=== PATIENT | male | born 1990 | race Caucasian/White ===

== ENCOUNTER 2023-08-20 09:10 | Emergency (ER) | payer SELFPAY ==
[2023-08-20 09:51] VITALS: BP 122/88; PULSE 69; RESP 14; TEMP 36.7; O2SAT 98; BMI 23.7
[2023-08-20 10:06] VITALS: TEMP 36.3
[2023-08-20 10:12] LABS: Basophils # 0.1 10^3/uL (0.0-0.1); Basophils % 0.6 %; Eosinophils % 0.2 %; Hematocrit 45.7 % (37-53); Lymphocytes # 1.7 10^3/uL (0.8-4.8); Lymphocytes % 17.2 %; Mean Corpuscular HGB Conc 33.3 g/dL (30-55); Mean Corpuscular Hemoglobin 30.5 pg (27-33); Mean Corpuscular Volume 91.6 fl (82-101); Mean Platelet Volume 10.2 fL (7.4-10.4); Monocytes # 0.5 10^3/uL (0.2-0.9); Neutrophils # 7.41 10^3/uL (1.8-7.7); Neutrophils % 76.7 %; Nucleated Red Blood Cells % 0 %; Platelet Count 276 10^3/cmm (157-399); Red Blood Count 4.99 10^6/uL (3.85-5.65); White Blood Count 9.66 10^3/uL (3.29-11.43)
[2023-08-20 10:25] LABS: Alanine Aminotransferase 28 U/L (0-41); Albumin Level 4.6 g/dL (3.5-5.2); Alkaline Phosphatase 94 U/L (40-130); Anion Gap 16.2 (5-19); Aspartate Amino Transferase 21 U/L (0-40); Blood Urea Nitrogen 16 mg/dL (6-20); Calcium 9.4 mg/dL (8.5-10.5); Carbon Dioxide 26 mmol/L (22-29); Chloride 102 mmol/L (98-107); Creatinine Clr Calc Pharmacy 161.1785; Globulin 2.9 g/dL (1.3-4.6); Glomerular Filtration Rate 112.8 mL/min (90-130); Glucose 107 mg/dL (65-115); Lipase 26 U/L (13-60); Osmolality Calculated 290 mOsm/kg (285-295); Potassium 5.2 mmol/L (3.5-5.1); Sodium 139 mmol/L (136-145); Total Bilirubin 0.8 mg/dL (0.15-1.2); Total Protein 7.5 g/dL (6.6-8.7)
--- NOTE | 2023-08-20 11:49 | ED_ITS ---
HPI - Nausea/Vomiting/Diarrhea 2 General: Chief complaint: Abdominal Pain Stated complaint: n,v,fever Time Seen by Provider: 08/20/23 09:34 Source: patient Mode of arrival: ambulatory Limitations: no limitations History of Present Illness: Patient is a 33-year-old male presents to ED today with complaint of nausea and vomiting starting early this morning. He states emesis has been nonbloody. He is not complaining of abdominal pain. He has not had diarrhea. He denies any poor food exposures the day before but does state he ate [employer] along with his significant other but she is not sick. 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 He is also reporting fevers as high as 101. Patient is afebrile upon arrival here. MD elicited complaint: nausea, vomiting and other (fever) Onset (ago): hour(s) Associated nausea: Yes Associated abdominal pain: No Location of pain: None Exacerbating factors: eating Relieving factors: none Associated symtoms: Reports nausea; Denies chest pain, dizziness, dysuria, fatigue, headache(s) or malaise Review of Systems 2 Const: Reports: fever(s) and body aches; Denies: fatigue or malaise Card: Denies: chest pain Resp: Denies: dyspnea GI: Reports: nausea and vomiting; Denies: abdominal pain, hematemesis, diarrhea, change in bowel habits or melena : Denies: flank pain or dysuria Musc: Denies: joint pain Skin/Breast: Denies: rash Neuro: Denies: headache(s) or dizziness Physical Exam 2 Const: COMMON NORMALS: no acute distress, average body habitus, patient oriented x3, no limitations, healthy appearing, alert and well nourished HENMT: COMMON NORMALS: normocephalic and atraumatic HEAD & SCALP: n ormocephalic and atraumatic TEETH & GINGIVA: Yes caries and Yes poor dentition THROAT: posterior oropharynx normal Eye: COMMON NORMALS: no scleral icterus Neck/C-Spine: COMMON NORMALS: full ROM, no lymphadenopathy, supple and no meningeal signs Chest: COMMONS NORMALS: normal inspection of the chest Resp: COMMON NORMALS: normal respiratory effort and clear to auscultation bilaterally AUSCULTATION: clear to auscultation bilaterally Cardio: COMMON NORMALS: regular rate and regular rhythm RATE: regular rate RHYTHM: regular rhythm GI: COMMON NORMALS: Normal to inspection, nondistended, normoactive bowel sounds present, Soft to palpation, non-tender, No hepatosplenomegaly present and no masses PALPATION: Yes Soft to palpation and Yes No hepatosplenomegaly present : COMMON NORMALS: Yes no CVA tenderness BLADDER/KIDNEY EXAM: Yes no CVA tenderness Back/Pelvis: COMMON NORMALS: no CVA tenderness Extremity: COMMON NORMALS: normal to inspection GENERAL: Yes normal exam except as noted Neuro: COMMON NORMALS: patient oriented x3 SENSORIUM/ORIENTATION: Yes alert MENINGEAL SIGNS: Yes no meningeal signs Skin: COMMON NORMALS: no rashes or lesions noted GENERAL SKIN EXAM: no rashes or lesions noted Course 2 Vital Signs: Vital signs: Vital Signs Temperature 97.4 F L 08/20/23 10:06 Pulse Rate 69 08/20/23 09:51 Respiratory Rate 14 08/20/23 09:51 Blood Pressure 122/88 08/20/23 09:51 Pulse Oximetry 98 08/20/23 09:51 MDM - Nausea/Vomiting/Diarrhea Medical Decision Making Patient states his nausea is better after IV fluids and Zofran. His vital signs are stable and have been throughout his stay. His blood work overall is unremarkable. He has mild hyperkalemia at 5.2. His UA is unremarkable. Influenza is negative. At this time symptoms most likely are related to a viral gastroenteritis. Symptoms should be self-limited. Conservative treatment recommended at home. Differential Diagnosis Likely food poisoning, gastroenteritis and dehydration Medical Records I reviewed the patient's medical records. Lab Data I reviewed the patient's lab results. 08/20/23 10:01 08/20/23 10:01 Laboratory Results WBC 9.66 10^3/uL (3.29-11.43) 08/20/23 10:01 RBC 4.99 10^6/uL (3.85-5.65) 08/20/23 10:01 Hgb 15.20 g/dL (11.27-16.99) 08/20/23 10:01 Hct 45.7 % (37-53) 08/20/23 10:01 MCV 91.6 fl (82-101) 08/20/23 10:01 MCH 30.5 pg (27-33) 08/20/23 10:01 MCHC 33.3 g/dL (30-55) 08/20/23 10:01 RDW 13.0 % (12.1-15.1) 08/20/23 10:01 Plt Count 276 10^3/cmm (157-399) 08/20/23 10:01 MPV 10.2 fL (7.4-10.4) 08/20/23 10:01 Neut % (Auto) 76.7 % 08/20/23 10:01 Lymph % (Auto) 17.2 % 08/20/23 10:01 Bee % (Auto) 5.0 % 08/20/23 10:01 Eos % (Auto) 0.2 % 08/20/23 10:01 Baso % (Auto) 0.6 % 08/20/23 10:01 Neut # (Auto) 7.41 10^3/uL (1.8-7.7) 08/20/23 10:01 Lymph # (Auto) 1.7 10^3/uL (0.8-4.8) 08/20/23 10:01 Bee # (Auto) 0.5 10^3/uL (0.2-0.9) 08/20/23 10:01 Eos # (Auto) 0.0 10^3/uL (0.0-0.8) 08/20/23 10:01 Baso # (Auto) 0.1 10^3/uL (0.0-0.1) 08/20/23 10:01 Nucleated RBC % (auto) 0 % 08/20/23 10:01 Nucleated RBCs # 0.0 /100WBC 08/20/23 10:01 Sodium 139 mmol/L (136-145) 08/20/23 10:01 Potassium 5.2 mmol/L (3.5-5.1) H 08/20/23 10:01 Chloride 102 mmol/L (98-107) 08/20/23 10:01 Carbon Dioxide 26 mmol/L (22-29) 08/20/23 10:01 Anion Gap 16.2 (5-19) 08/20/23 10:01 BUN 16 mg/dL (6-20) 08/20/23 10:01 Creatinine 0.8 mg/dL (0.7-1.2) 08/20/23 10:01 GFR Calculation 112.8 mL/min (90-130) 08/20/23 10:01 Glucose 107 mg/dL (65-115) 08/20/23 10:01 Calculated Osmolality 290 mOsm/kg (285-295) 08/20/23 10:01 Calcium 9.4 mg/dL (8.5-10.5) 08/20/23 10:01 Total Bilirubin 0.8 mg/dL (0.15-1.2) 08/20/23 10:01 AST 21 U/L (0-40) 08/20/23 10:01 ALT 28 U/L (0-41) 08/20/23 10:01 Alkaline Phosphatase 94 U/L (40-130) 08/20/23 10:01 Total Protein 7.5 g/dL (6.6-8.7) 08/20/23 10:01 Albumin 4.6 g/dL (3.5-5.2) 08/20/23 10:01 Globulin 2.9 g/dL (1.3-4.6) 08/20/23 10:01 Lipase 26 U/L (13-60) 08/20/23 10:01 Urine Color Yellow (Yellow) 08/20/23 10:02 Urine Appearance Clear (CLEAR) 08/20/23 10:02 Urine pH 8 (5-7) H 08/20/23 10:02 Ur Specific [place] 1.010 (1.005-1.030) 08/20/23 10:02 Urine Protein Neg (Negative) 08/20/23 10:02 Urine Glucose (UA) Norm (Normal) 08/20/23 10:02 Urine Ketones Negative (Negative) 08/20/23 10:02 Urine Blood Neg (Negative) 08/20/23 10:02 Urine Nitrate Negative (Negative) 08/20/23 10:02 Urine Bilirubin Neg (Negative) 08/20/23 10:02 Prot Sulfosalicylic Acd Negative (Negative) 08/20/23 10:02 Urine Urobilinogen Norm mg/dL (Negative) 08/20/23 10:02 Ur Leukocyte Esterase Negative (Negative) 08/20/23 10:02 Influenza Type A Ag negative (Negative) 08/20/23 11:48 Influenza Type B Ag negative (Negative) 08/20/23 11:48 No radiology studies performed this visit Discharge Plan Discharge Patient Disposition: Home Clinical Impression: Gastroenteritis Condition: Stable Prescriptions: New ondansetron 4 mg tablet,disintegrating 4 mg PO Q8H PRN (Reason: nausea and vomiting) Qty: 14 0RF Discharge Orders: Discharge ED (Routine); Ordered 08/20/23 Ordered By: Natalie Moon Patient Instructions: Gastroenteritis (DC), Acute Nausea and Vomiting (DC) Coding Level of Care Code ED Transportation Superintendent for Janes Moscoso
[2023-08-20 12:07] LABS: Add Urine Microscopic? NO; Charge for UA Resulting for Rev
[2023-08-20] MEDS: sodium chloride 0.9% 1,000 ML 999 ML IV (12:13)
[2023-08-20 12:17] LABS: Bilirubin Urine Neg (Negative); Blood Urine Neg (Negative); Glucose Urine UA Norm (Normal); Ketones Urine Negative (Negative); Leukocyte Esterase Urine Negative (Negative); Nitrate Urine Negative (Negative); Protein Urine Neg (Negative); Sulfosalicylic Acid Urine Negative (Negative); Urine Appearance Clear (CLEAR); Urine Color Yellow (Yellow); Urobilinogen Urine Norm (Negative); pH Urine 8 (5-7)
[2023-08-20] MEDS: ondansetron 2 mg/ML SDV 2 mL 4 MG IVP (12:21)
[2023-08-20 12:27] LABS: Influenza A by IFA negative (Negative); Influenza B by IFA negative (Negative)
[2023-08-20 14:10] VITALS: BP 109/71; PULSE 72; O2SAT 98
== END 2023-08-20 14:25 | disposition home or self-care (01) ==
PROVIDERS: Emergency Provider Physician Assistant
DX: K52.9 Noninfective gastroenteritis and colitis, unspecified (principal)
CPT/HCPCS: 36415; 80053; 81003; 83690; 85025; 87804; 96361; 96374; 99284; J2405; J7030

== ENCOUNTER 2024-02-22 00:54 | Emergency (ER) | payer OTHER, SELFPAY ==
[2024-02-22] VITALS (10 sets, daily range): BP systolic 106–130; BP diastolic 58–78; PULSE 77–96; RESP 18–20; TEMP 36.8; O2SAT 95–98; BMI 21.2
--- NOTE | 2024-02-22 00:58 | ECG_ITS ---
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 Measurements Intervals [employer] Rate: 92 P: 70 OK: 163 QRS: 28 QRSD: 102 T: 66 QT: 338 QTc: 419 Interpretive Statements SINUS RHYTHM No previous ECG available for comparison Electronically Signed On 02-24-2024 18:56:37 EMPLOYMENT OFFICE CLERK by Sanjay Smith M.D. [email or web address]
--- NOTE | 2024-02-22 01:09 | XRR_ITS ---
PROCEDURE INFORMATION: Exam: XR Chest Exam date and time: 02/22/2024 1:11 AM Age: 33 years old Clinical indication: Chest pressure; Patient HX: C/O chest pain TECHNIQUE: Imaging protocol: Radiologic exam of the chest. Views: 1 view. COMPARISON: No relevant prior studies available. FINDINGS: Lungs: Unremarkable. No consolidation. Pleural spaces: Unremarkable. No pleural effusion. No pneumothorax. Heart/Mediastinum: Unremarkable. No cardiomegaly. Bones/joints: Unremarkable. XR/XR chest 1V portable [id number] IMPRESSION: No acute findings.
--- NOTE | 2024-02-22 01:10 | W.ED.CHESTPA ---
HPI - Chest Pain General: Chief Complaint: Chest Pain Stated Complaint: chest pain Time Seen by Provider: 02/22/24 01:02 History of Present Illness: 33-year-old healthy male who presents emergency room by ambulance with chest pain. He says he suddenly developed a sharp chest pain in the center of his chest. He also developed a rash. He has a maculopapular rash over his neck and had some hives on his face. He says pain is worse when he breathes deeply. He is not short of breath. No abdominal pain. No nausea or vomiting. No new medication or food exposures today. EMS does report he had been drinking some alcohol. Related Data Previous Rx's Medication Instructions Recorded ondansetron 4 mg disintegrating 4 mg PO Q8H PRN nausea and 08/20/23 tablet vomiting #14 tabs prednisone 20 mg tablet 60 mg (3 x 20 mg) PO DAILY 5 days 02/22/24 #15 tabs Allergies Allergy/AdvReac Type Severity Reaction Status Date / Time No Known Allergies Allergy Verified 08/20/23 09:56 Review of Systems Narrative: Constitutional symptoms: Negative except as documented in HPI. Skin symptoms: Negative except as documented in HPI. Eye symptoms: Negative except as documented in HPI. ENMT symptoms: Negative except as documented in HPI. Respiratory symptoms: Negative except as documented in HPI. Cardiovascular symptoms: Negative except as documented in HPI. Gastrointestinal symptoms: Negative except as documented in HPI. Genitourinary symptoms: Negative except as documented in HPI. Musculoskeletal symptoms: Negative except as documented in HPI. Neurologic symptoms: Negative except as documented in HPI. Psychiatric symptoms: Negative except as documented in HPI. Endocrine symptoms: Negative except as documented in HPI. Physical Exam Narrative: EXAM NARRATIVE: General: Alert, no acute distress. Skin: Warm, dry. Patient does have a maculopapular rash over his neck and chest. Head: Normocephalic, atraumatic. Neck: Supple, trachea midline. Eye: Extraocular movements are intact. Ears, nose, mouth and throat: mucosa moist. Cardiovascular: Regular, Normal peripheral perfusion. Respiratory: Lungs are clear to auscultation, respirations are non-labored, breath sounds are equal, Symmetrical chest wall expansion. Gastrointestinal: Soft, Nontender, Non distended Musculoskeletal: Normal ROM, no deformity. Neurological: Alert and oriented, No focal neurological deficit observed. Psychiatric: Cooperative, appropriate mood & affect. Course Vital Signs: Vital signs: Vital Signs Temperature 98.2 F 02/22/24 00:56 Pulse Rate 95 02/22/24 00:56 Respiratory Rate 18 02/22/24 00:56 Blood Pressure 130/78 02/22/24 00:56 Pulse Oximetry 97 02/22/24 00:56 MDM - Chest Pain Medical Decision Making Differential diagnosis for patient with chest pain includes but is not limited to and based on the above HPI, review of systems and physical exam: Pneumonia. unstable angina. angina. Acute coronary syndrome / IA. Pulmonary embolism. Costochondritis / musculoskeletal. Pleurisy. Pericarditis. Esophageal spasm. Pancreatis. Cholecystitis. Orders placed to evaluate differential diagnosis based on the above differential, HPI and physical exam EKG: Time 12:58 AM. Rate 92. Normal sinus rhythm, No ST-T changes, no ectopy, normal NM & QRS intervals, This was reviewed and interpreted by myself the ER physician at 1:03 AM Chest x-ray: No acute process. No infiltrate. No pneumothorax. This was reviewed and interpreted by myself the emergency room physician. I also reviewed the radiology report. Lab Review: Laboratory results were reviewed and interpreted by myself the emergency room physician. Lab work is unremarkable. No leukocytosis. No anemia. No renal failure. Liver enzymes are normal. Patient does have a blood alcohol level of 213. Gil flu and RSV are negative I reviewed the patient's medical record. Reexamination: Patient remained stable. No increased work of breathing. No altered mental status. No focal motor deficits. Assessment and plan: Allergic reaction Noncardiac chest pain ?IV Solu-Medrol and IV Toradol in the emergency room - Discharged home - Discussed findings and plan with patient. Answered any questions. - All laboratory values were reviewed and interpreted personally by myself, the ER physician - All imaging was reviewed and interpreted personally by myself, the ER physician. - Evaluation and treatment of this problem were appropriate in the emergency setting Lab Data 02/22/24 01:02 02/22/24 01:02 Radiology Impressions Chest X-Ray 02/22/24 01:09 IMPRESSION: No acute findings. Laboratory Results WBC 8.84 10^3/uL (3.29-11.43) 02/22/24 01:02 RBC 5.07 10^6/uL (3.85-5.65) 02/22/24 01:02 Hgb 15.70 g/dL (11.27-16.99) 02/22/24 01:02 Hct 46.2 % (37-53) 02/22/24 01:02 MCV 91.1 fl (82-101) 02/22/24 01:02 MCH 31.0 pg (27-33) 02/22/24 01:02 MCHC 34.0 g/dL (30-55) 02/22/24 01:02 RDW 12.7 % (12.1-15.1) 02/22/24 01:02 Plt Count 297 10^3/cmm (157-399) 02/22/24 01:02 MPV 10.1 fL (7.4-10.4) 02/22/24 01:02 Neut % (Auto) 46.8 % 02/22/24 01:02 Lymph % (Auto) 43.7 % 02/22/24 01:02 Randall % (Auto) 6.7 % 02/22/24 01:02 Eos % (Auto) 1.8 % 02/22/24 01:02 Baso % (Auto) 0.9 % 02/22/24 01:02 Neut # (Auto) 4.14 10^3/uL (1.8-7.7) 02/22/24 01:02 Lymph # (Auto) 3.9 10^3/uL (0.8-4.8) 02/22/24 01:02 Randall # (Auto) 0.6 10^3/uL (0.2-0.9) 02/22/24 01:02 Eos # (Auto) 0.2 10^3/uL (0.0-0.8) 02/22/24 01:02 Baso # (Auto) 0.1 10^3/uL (0.0-0.1) 02/22/24 01:02 Nucleated RBC % (auto) 0 % 02/22/24 01:02 Nucleated RBCs # 0.0 /100WBC 02/22/24 01:02 Sodium 144 mmol/L (136-145) 02/22/24 01:02 Potassium 4.6 mmol/L (3.5-5.1) 02/22/24 01:02 Chloride 107 mmol/L (98-107) 02/22/24 01:02 Carbon Dioxide 21 mmol/L (22-29) L 02/22/24 01:02 Anion Gap 20.6 (5-19) H 02/22/24 01:02 BUN 15 mg/dL (6-20) 02/22/24 01:02 Creatinine 1.1 mg/dL (0.7-1.2) 02/22/24 01:02 GFR Calculation 78.1 mL/min (90-130) L 02/22/24 01:02 Glucose 72 mg/dL (65-115) 02/22/24 01:02 Calculated Osmolality 297 mOsm/kg (285-295) H 02/22/24 01:02 Calcium 9.0 mg/dL (8.5-10.5) 02/22/24 01:02 Total Bilirubin 0.4 mg/dL (0.15-1.2) 02/22/24 01:02 AST 20 U/L (0-40) 02/22/24 01:02 ALT 17 U/L (0-41) 02/22/24 01:02 Alkaline Phosphatase 78 U/L (40-130) 02/22/24 01:02 Troponin T Baseline < 6 ng/L (0-15) 02/22/24 01:02 Total Protein 7.3 g/dL (6.6-8.7) 02/22/24 01:02 Albumin 4.8 g/dL (3.5-5.2) 02/22/24 01:02 Globulin 2.5 g/dL (1.3-4.6) 02/22/24 01:02 Ethyl Alcohol 213 mg/dL (0-10) H 02/22/24 01:02 Coronavirus (PCR) Negative (Negative) 02/22/24 01:26 Influenza A (PCR) Negative (Negative) 02/22/24 01:26 Influenza Type B (PCR) Negative (Negative) 02/22/24 01:26 RSV (PCR) Negative (Negative) 02/22/24 01:26 All radiology interpretation(s) finalized by discharge Discharge Plan Discharge Patient Disposition: Home Clinical Impression: Non-cardiac chest pain, Allergic reaction Condition: Stable Prescriptions: New prednisone 20 mg tablet 60 mg PO DAILY 5 Days Qty: 15 0RF No Action ondansetron 4 mg tablet,disintegrating 4 mg PO Q8H PRN (Reason: nausea and vomiting) Qty: 14 0RF Discharge Orders: Discharge ED (Routine); Ordered 02/22/24 Ordered By: Patricia Singleton Discharge Diet: Usual diet Discharge Activity: Increase activity as tolerated Patient Instructions: Noncardiac Chest Pain (ED), General Allergic Reaction (ED), Opioid Safety, Pain Management Activity Restrictions/Additional Instructions: Thank you for choosing [facility] for your healthcare needs today. Please realize this is an emergency room and that we are providing you with a medical screening exam and this may not be complete and all inclusive of all the testing and or work up that you may need to determine your ailment or severity of your illness. You have been screened and evaluated and felt safe for discharge. Health conditions do change or evolve sometimes and as such it is important that you follow up with your Primary Doctor to be re checked, 3-5 days is a general good time frame for follow up. You are always welcome to return to the ED for re assessment if your symptoms are worsening or you have new concerns Coding Level of Care Code ED Director Paid Media for Janes Moscoso
[2024-02-22 01:15] LABS: Basophils # 0.1 10^3/uL (0.0-0.1); Basophils % 0.9 %; Eosinophils # 0.2 10^3/uL (0.0-0.8); Eosinophils % 1.8 %; Hematocrit 46.2 % (37-53); Lymphocytes # 3.9 10^3/uL (0.8-4.8); Lymphocytes % 43.7 %; Mean Corpuscular Volume 91.1 fl (82-101); Mean Platelet Volume 10.1 fL (7.4-10.4); Monocytes # 0.6 10^3/uL (0.2-0.9); Monocytes % 6.7 %; Neutrophils # 4.14 10^3/uL (1.8-7.7); Neutrophils % 46.8 %; Nucleated Red Blood Cells % 0 %; Platelet Count 297 10^3/cmm (157-399); Red Blood Count 5.07 10^6/uL (3.85-5.65); Red Cell Distribution Width 12.7 % (12.1-15.1); White Blood Count 8.84 10^3/uL (3.29-11.43)
[2024-02-22 01:28] LABS: Alanine Aminotransferase 17 U/L (0-41); Albumin Level 4.8 g/dL (3.5-5.2); Alcohol Level 213 mg/dL (0-10); Alkaline Phosphatase 78 U/L (40-130); Anion Gap 20.6 (5-19); Aspartate Amino Transferase 20 U/L (0-40); Blood Urea Nitrogen 15 mg/dL (6-20); Carbon Dioxide 21 mmol/L (22-29); Chloride 107 mmol/L (98-107); Creatinine Clr Calc Pharmacy 112.2265; Globulin 2.5 g/dL (1.3-4.6); Glomerular Filtration Rate 78.1 mL/min (90-130); Glucose 72 mg/dL (65-115); Osmolality Calculated 297 mOsm/kg (285-295); Potassium 4.6 mmol/L (3.5-5.1); Sodium 144 mmol/L (136-145); Total Bilirubin 0.4 mg/dL (0.15-1.2); Total Protein 7.3 g/dL (6.6-8.7); Troponin(5th) Baseline < 6 ng/L (0-15)
[2024-02-22 02:08] LABS: Covid PCR NEGATIVE (Negative); Influenza A NEGATIVE (Negative); Influenza B NEGATIVE (Negative); Respiratory Syncytial Virus Ce NEGATIVE (Negative)
[2024-02-22] MEDS: ketorolac 30 mg/mL INJ IVP (02:47)
[2024-02-22] MEDS: methylPREDNISolone sod succ 125 mg/2 mL INJ IVP (02:47)
== END 2024-02-22 03:01 | disposition home or self-care (01) ==
PROVIDERS: Emergency Provider Emergency Medicine
DX: R07.89 Other chest pain (principal); T78.40XA Allergy, unspecified, initial encounter; Z11.52 Encounter for screening for COVID-19; X58.XXXA Exposure to other specified factors, initial encounter
CPT/HCPCS: 0241U; 71045; 80053; 80307; 84484; 85025; 93005; 96374; 96375; 99285; J1885; J2919

== ENCOUNTER 2024-07-08 09:15 | Emergency (ER) | payer OTHER, SELFPAY ==
[2024-07-08 09:18] VITALS: BP 143/99; PULSE 64; RESP 20; TEMP 36.9; O2SAT 96
--- NOTE | 2024-07-08 09:18 | ED_ITS ---
HPI - Chest Pain 2 General: Chief Complaint: Chest Pain Stated Complaint: chest pain Time Seen by Provider: 07/08/24 09:16 Source: patient Mode of arrival: ambulatory Limitations: no limitations History of Present Illness: Patient is a 34-year-old male who presents today with complaint of left-sided chest pain. He reports that this began yesterday while at work and has persisted. Patient rates his pain as a 5/10 and states that activities such as deep inhalation worsen the pain. He notes that he has had one similar episode of chest pain in the past and was told it was due to low potassium. Patient is a current everyday smoker. Denies cough/congestion/hemoptysis. He clinically appears in NAD. 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) Pain location: left chest Pain radiation: none Pain scale (0-10): 5 Quality: sharp Relieving factors: nothing Exacerbating factors: inspiration and palpation Associated symptoms: Reports no associated symptoms; Deny abdominal pain, fever(s), palpitations or syncope Treatment prior to arrival: none Risk Factors: Coronary artery disease risk factors: smoking history (Smokes half a pack per day) Thoracic aortic dissection risk factors: none Related Data Home Medications ?Medication ?Instructions ?Recorded ?Confirmed No Known Home Medications 07/08/2406/24 Allergies Allergy/AdvReac Type Severity Reaction Status Date / Time No Known Allergies Allergy Verified 08/20/23 09:56 Review of Systems 2 Const: Denies: fever(s), chills, body aches, fatigue or malaise Card: Reports: chest pain; Denies: palpitations, irregular heart rhythm, edema, swelling of feet/ankles, lightheadedness, syncope, pre-syncope, dyspnea on exertion, orthopnea, leg pain with exertion or acrocyanosis Resp: Reports: pain on inspiration; Denies: productive cough, non-productive cough, wheezing, stridor, change in phlegm color, hemoptysis or chest congestion GI: Denies: abdominal pain : Denies: flank pain Musc: Denies: neck pain or back pain Neuro: Denies: headache(s) or dizziness Physical Exam 2 Const: COMMON NORMALS: no acute distress, average body habitus, patient oriented x3, no limitations, healthy appearing, alert and well nourished G ENERAL APPEARANCE: cooperative ORIENTATION/CONSCIOUSNESS: Yes awake, Yes oriented to person, Yes oriented to place and Yes oriented to time Neck/C-Spine: COMMON NORMALS: no JVD Chest: COMMONS NORMALS: normal inspection of the chest OTHER: chest pain easily reproducible by palpation of L anterior chest wall Resp: COMMON NORMALS: normal respiratory effort and clear to auscultation bilaterally AUSCULTATION: clear to auscultation bilaterally Cardio: COMMON NORMALS: no JVD, regular rate and regular rhythm RATE: r egular rate RHYTHM: regular rhythm GI: COMMON NORMALS: Normal to inspection, nondistended, normoactive bowel sounds present, Soft to palpation, non-tender and no masses PALPATION: Yes Soft to palpation : COMMON NORMALS: Yes no CVA tenderness BLADDER/KIDNEY EXAM: Yes no CVA tenderness Back/Pelvis: COMMON NORMALS: no CVA tenderness and thoracic and lumbar spine normal to inspection Extremity: COMMON NORMALS: capillary refill normal, no clubbing, cyanosis or edema, no calf tenderness and no pedal edema GENERAL: Yes normal exam except as noted Neuro: COMMON NORMALS: patient oriented x3, moves all extremities, no focal motor deficits, no sensory deficits noted and gait normal S ENSORIUM/ORIENTATION: Yes alert, Yes oriented to person, Yes oriented to place and Yes oriented to time Skin: COMMON NORMALS: no rashes or lesions noted GENERAL SKIN EXAM: no rashes or lesions noted Course 2 Vital Signs: Vital signs: Vital Signs Temperature 98.4 F 07/08/24 09:18 Pulse Rate 64 07/08/24 09:18 Respiratory Rate 20 H 07/08/24 09:18 Blood Pressure 143/99 07/08/24 09:18 Pulse Oximetry 96 07/08/24 09:18 Oxygen Delivery Me thod Room Air 07/08/24 09:18 MDM - Chest Pain Medical Decision Making Patient is a 34-year-old male here for anterior left-sided chest pain beginning yesterday. Pain is easily reproducible along physical examination. Clinically he appears in no acute distress. His vital signs are stable. Blood work including a D-dimer and baseline troponin are unremarkable. His EKG is nonischemic. CXR is unremarkable. Patient will be allowed discharge. 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 Will have him follow-up with primary care. Return to ED precautions discussed. Medical Records I reviewed the patient's medical records. Lab Data I reviewed the patient's lab results. 07/08/24 09:49 07/08/24 09:49 Laboratory Results WBC 5.78 10^3/uL (3.29-11.43) 07/08/24 09:49 RBC 5.00 10^6/uL (3.85-5.65) 07/08/24 09:49 Hgb 15.40 g/dL (11.27-16.99) 07/08/24 09:49 Hct 46.8 % (37-53) 07/08/24 09:49 MCV 93.6 fl (82-101) 07/08/24 09:49 MCH 30.8 pg (27-33) 07/08/24 09:49 MCHC 32.9 g/dL (30-55) 07/08/24 09:49 RDW 13.2 % (12.1-15.1) 07/08/24 09:49 Plt Count 226 10^3/cmm (157-399) 07/08/24 09:49 MPV 9.7 fL (7.4-10.4) 07/08/24 09:49 Neut % (Auto) 57.0 % 07/08/24 09:49 Lymph % (Auto) 28.4 % 07/08/24 09:49 [place] % (Auto) 11.6 % 07/08/24 09:49 Eos % (Auto) 1.6 % 07/08/24 09:49 Baso % (Auto) 1.2 % 07/08/24 09:49 Neut # (Auto) 3.30 10^3/uL (1.8-7.7) 07/08/24 09:49 Lymph # (Auto) 1.6 10^3/uL (0.8-4.8) 07/08/24 09:49 [place] # (Auto) 0.7 10^3/uL (0.2-0.9) 07/08/24 09:49 Eos # (Auto) 0.1 10^3/uL (0.0-0.8) 07/08/24 09:49 Baso # (Auto) 0.1 10^3/uL (0.0-0.1) 07/08/24 09:49 Nucleated RBC % (auto) 0 % 07/08/24 09:49 Nucleated RBCs # 0.0 /100WBC 07/08/24 09:49 D-Dimer <= 0.27 ug/mLFEU (0-0.59) 07/08/24 09:49 Sodium 141 mmol/L (136-145) 07/08/24 09:49 Potassium 4.6 mmol/L (3.5-5.1) 07/08/24 09:49 Chloride 103 mmol/L (98-107) 07/08/24 09:49 Carbon Dioxide 25 mmol/L (22-29) 07/08/24 09:49 Anion Gap 17.6 (5-19) 07/08/24 09:49 BUN 9 mg/dL (6-20) 07/08/24 09:49 Creatinine 0.8 mg/dL (0.7-1.2) 07/08/24 09:49 GFR Calculation 112.0 mL/min (90-130) 07/08/24 09:49 Glucose 99 mg/dL (65-115) 07/08/24 09:49 Calculated Osmolality 291 mOsm/kg (285-295) 07/08/24 09:49 Calcium 9.5 mg/dL (8.5-10.5) 07/08/24 09:49 Total Bilirubin 0.5 mg/dL (0.15-1.2) 07/08/24 09:49 AST 31 U/L (0-40) 07/08/24 09:49 ALT 22 U/L (0-41) 07/08/24 09:49 Alkaline Phosphatase 79 U/L (40-130) 07/08/24 09:49 Troponin T Baseline < 6 ng/L (0-15) 07/08/24 09:49 Total Protein 7.2 g/dL (6.6-8.7) 07/08/24 09:49 Albumin 4.8 g/dL (3.5-5.2) 07/08/24 09:49 Globulin 2.4 g/dL (1.3-4.6) 07/08/24 09:49 All radiology interpretation(s) finalized by discharge Discharge Plan Discharge Patient Disposition: Home Clinical Impression: Chest wall pain Condition: Stable Prescriptions: No Action No Known Home Medications Discharge Orders: Discharge ED (Routine); Ordered 07/08/24 Ordered By: Natalie Moon Patient Instructions: Chest Pain - Chest Wall, Chest Wall Pain (ED) Activity Restrictions/Additional Instructions: As we discussed, we have case management set you up with a primary care provider for further evaluation. You may return to the emergency department at anytime for worsening chest pain, shortness of breath, difficulty breathing, lightheadedness/passing out episodes, or any other concerns you may have. Print Language: Latvian Coding Level of Care Code ED Vending Manager for Janes Moscoso
--- NOTE | 2024-07-08 09:38 | XRR_ITS ---
PROCEDURE INFORMATION: Exam: XR Chest Exam date and time: 07/08/2024 10:00 AM Age: 34 years old Clinical indication: Pain; Angina pectoris; Additional info: Chest pain TECHNIQUE: Imaging protocol: Radiologic exam of the chest. Views: 1 view. COMPARISON: CR XR chest 1V portable [id number] 02/22/2024 1:11 AM FINDINGS: Lungs: Unremarkable. No consolidation. Pleural spaces: Unremarkable. No pleural effusion. No pneumothorax. Heart/Mediastinum: Unremarkable. No cardiomegaly. Bones/joints: Unremarkable. XR/XR chest 1V portable [id number] IMPRESSION: No acute findings.
--- NOTE | 2024-07-08 09:38 | ECG_ITS ---
[facility] Test Date: 2024-07-08 Pat Name: Osiel Tesfaye Department: Room: Gender: Male [employer] Se[employer] Operator: : [id number] Requested By: Natalie Moon Order Number: [id number] Ailyn MD: Edna Duarte M.D. Measurements Intervals [place] Rate: 61 P: 138 OH: 157 QRS: 49 QRSD: 103 T: 95 QT: 369 QTc: 373 Interpretive Statements SINUS RHYTHM POSSIBLE RIGHT VENTRICULAR CONDUCTION DELAY [RSR (QR) IN V1/V2] Compared to ECG 02/22/2024 00:58:47 No significant changes Electronically Signed On 07-09-2024 21:51:53 CDT by Edna Duarte M.D. [email or web address]
[2024-07-08 09:55] LABS: Basophils # 0.1 10^3/uL (0.0-0.1); Basophils % 1.2 %; Eosinophils # 0.1 10^3/uL (0.0-0.8); Eosinophils % 1.6 %; Hematocrit 46.8 % (37-53); Lymphocytes # 1.6 10^3/uL (0.8-4.8); Lymphocytes % 28.4 %; Mean Corpuscular HGB Conc 32.9 g/dL (30-55); Mean Corpuscular Hemoglobin 30.8 pg (27-33); Mean Corpuscular Volume 93.6 fl (82-101); Mean Platelet Volume 9.7 fL (7.4-10.4); Monocytes # 0.7 10^3/uL (0.2-0.9); Monocytes % 11.6 %; Nucleated Red Blood Cells % 0 %; Platelet Count 226 10^3/cmm (157-399); Red Cell Distribution Width 13.2 % (12.1-15.1); White Blood Count 5.78 10^3/uL (3.29-11.43)
[2024-07-08 10:13] LABS: D Dimer <= 0.27 ug/mLFEU (0-0.59)
[2024-07-08 10:16] LABS: Troponin(5th) Baseline < 6 ng/L (0-15)
[2024-07-08 10:21] LABS: Alanine Aminotransferase 22 U/L (0-41); Albumin Level 4.8 g/dL (3.5-5.2); Alkaline Phosphatase 79 U/L (40-130); Anion Gap 17.6 (5-19); Aspartate Amino Transferase 31 U/L (0-40); Blood Urea Nitrogen 9 mg/dL (6-20); Calcium 9.5 mg/dL (8.5-10.5); Carbon Dioxide 25 mmol/L (22-29); Chloride 103 mmol/L (98-107); Creatinine Clr Calc Pharmacy 156.2978; Globulin 2.4 g/dL (1.3-4.6); Glucose 99 mg/dL (65-115); Osmolality Calculated 291 mOsm/kg (285-295); Potassium 4.6 mmol/L (3.5-5.1); Sodium 141 mmol/L (136-145); Total Bilirubin 0.5 mg/dL (0.15-1.2); Total Protein 7.2 g/dL (6.6-8.7)
[2024-07-08 10:45] VITALS: BP 129/96; PULSE 68; O2SAT 95
--- NOTE | 2024-07-10 07:41 | DCPLANNER ---
messaged [facility] to establish PCP
== END 2024-07-08 10:48 | disposition home or self-care (01) ==
PROVIDERS: Emergency Provider Physician Assistant
DX: R07.89 Other chest pain (principal)
CPT/HCPCS: 36415; 71045; 80053; 84484; 85025; 85378; 93005; 99285